=== PATIENT | female | born 2005 | race Caucasian/White ===

== ENCOUNTER 2023-11-05 21:09 | Emergency (ER) | payer BC ==
[2023-11-05 21:13] VITALS: TEMP 98.6
--- NOTE | 2023-11-05 22:04 | ED ---
General Adult HPI - General Source: patient, RN notes reviewed Mode of arrival: ambulatory Limitations: no limitations <Emily Parish - Last Filed: 11/06/23 00:02> <Shama Baker - Last Filed: 11/06/23 04:36> - General Chief complaint: Vaginal Bleeding Stated complaint: ABD Pain, pegnant Time Seen by Provider: 11/05/23 21:30 - History of Present Illness Initial comments: 18-year-old female presents emergency department chief complaint of vaginal bleeding. Patient states that she believes she is roughly 4 weeks gestation as her LMP was the beginning of September and she has had 2 at home tests with her last being 2 weeks ago. Patient states that over the past 2 days she has been experiencing lower abdominal cramping and light vaginal bleeding. She denies passage of clots. Currently patient is denying abdominal pain. This is the patient's first and she has not sought care for this . (Emily Parish) - Related Data Allergies Allergy/AdvReac Type Severity Reaction Status Date / Time No Known Allergies Allergy Verified 11/05/23 21:12 Review of Systems ROS Other: All systems not noted in ROS Statement are negative. <Emily Parish - Last Filed: 11/06/23 00:02> ROS Other: All systems not noted in ROS Statement are negative. <Shama Baker - Last Filed: 11/06/23 04:36> ROS Statement: Those systems with pertinent positive or pertinent negative responses have been documented in the HPI. Past Medical History Past Medical History: No Reported History History of Any Multi-Drug Resistant Organisms: None Reported Past Surgical History: No Surgical Hx Reported Past Psychological History: No Psychological Hx Reported Smoking Status: Never smoker Past Alcohol Use History: None Reported Past Drug Use History: None Reported <Emily Parish - Last Filed: 11/06/23 00:02> General Exam Limitations: no limitations General appearance: alert, in no apparent distress Head exam: Present: atraumatic, normocephalic, normal inspection Eye exam: Present: normal appearance, PERRL, EOMI. Absent: scleral icterus, conjunctival injection, periorbital swelling ENT exam: Present: normal exam, mucous membranes moist Neck exam: Present: normal inspection. Absent: tenderness, meningismus, lymphadenopathy Respiratory exam: Present: normal lung sounds bilaterally. Absent: respiratory distress, wheezes, rales, rhonchi, stridor Cardiovascular Exam: Present: regular rate, normal rhythm, normal heart sounds. Absent: systolic murmur, diastolic murmur, rubs, gallop, clicks GI/Abdominal exam: Present: soft, normal bowel sounds. Absent: distended, tenderness, guarding, rebound, rigid Extremities exam: Present: normal inspection, full ROM, normal capillary refill. Absent: tenderness, pedal edema, joint swelling, calf tenderness Back exam: Present: normal inspection Neurological exam: Present: alert, oriented X3, CN II-XII intact Psychiatric exam: Present: normal affect, normal mood Skin exam: Present: warm, dry, intact, normal color. Absent: rash <Emily Parish - Last Filed: 11/06/23 00:02> Course Vital Signs 11/05/23 11/05/23 11/05/23 21:10 21:12 22:12 Temperature 98.6 F Pulse Rate 130 H 98 Respiratory 20 16 16 Rate Blood Pressure 120/73 116/68 O2 Sat by Pulse 98 99 98 Oximetry 11/05/23 23:12 Temperature Pulse Rate 67 Respiratory 16 Rate Blood Pressure O2 Sat by Pulse 98 Oximetry Medical Decision Making - Lab Data Result diagrams: 11/05/23 23:38 <Emily Parish - Last Filed: 11/06/23 00:02> - Lab Data Result diagrams: 11/05/23 23:38 11/05/23 23:38 <Shama Baker - Last Filed: 11/06/23 04:36> - Medical Decision Making Was pt. sent in by a medical professional or institution (JASON Richard, GASSER MACHINE OPERATOR, urgent care, hospital, or retirement...) When possible be specific @ -[No] Did you speak to anyone other than the patient for history (EMS, parent, family, police, friend...)? What history was obtained from this source @ -[No] Did you review nursing and triage notes (agree or disagree)? Why? @ -[I reviewed and agree with nursing and triage notes] Were old charts reviewed (outside hosp., previous admission, EMS record, old EKG, old radiological studies, urgent care reports/EKG's, retirement records)? Report findings @ -[No old charts were reviewed] Differential Diagnosis (chest pain, altered mental status, abdominal pain women, abdominal pain men, vaginal bleeding, weakness, fever, dyspnea, syncope, headache, dizziness, GI bleed, back pain, seizure, CVA, palpatations, mental health, musculoskeletal)? @ -Differential Vaginal Bleeding: Spontaneous , threatened , molar , ectopic , bloody show, incompetent cervix, abruptioplacenta, placenta previa, uterine rupture, dysfunctional uterine bleeding, hemorrhage, uterine fibro ids, this is not meant to be an all-inclusive list. EKG interpreted by me (3pts min.). @ -none X-rays interpreted by me (1pt min.). @ -[None done] CT interpreted by me (1pt min.). @ -[None done] U/S interpreted by me (1pt. min.). @ -[None done] What testing was considered but not performed or refused? (CT, X-rays, U/S, labs)? Why? @ -[None] What meds were considered but not given or refused? Why? @ -[None] Did you discuss the management of the patient with other professionals (professionals i.e. , PA, GASSER MACHINE OPERATOR, lab, RT, psych nurse, community mental health social worker, professor of poultry science, teacher, equal opportunity officer, mattress spring encaser)? Give summary @ -[No] Was smoking cessation discussed for >3mins.? @ -[No] Was critical care preformed (if so, how long)? @ -[No] Were there social determinants of health that impacted care today? How? (Homelessness, low income, unemployed, alcoholism, drug addiction, transportation, low edu. Level, literacy, decrease access to med. care, group home, rehab)? @ -[No] Was there de-escalation of care discussed even if they declined (Discuss DNR or withdrawal of care, Hospice)? DNR status @ -[No] What co-morbidities impacted this encounter? (DM, HTN, Smoking, COPD, CAD, Cancer, CVA, ARF, Chemo, Hep., AIDS, mental health diagnosis, sleep apnea, morbid obesity)? @ -[None] Was patient admitted / discharged? Hospital course, mention meds given and route, prescriptions, significant lab abnormalities, going to OR and other pertinent info. @ -Discharged. 18-year-old female with vaginal bleeding. On examination patient is not expressing signs of abdominal tenderness at this time. She will be evaluated via ultrasound and laboratory studies. The patient is signed out to my colleague, Shama Baker PA-C pending US and labs in addition to disposition. Undiagnosed new problem with uncertain prognosis? @ -[No] Drug Therapy requiring intensive monitoring for toxicity (Heparin, Nitro, Insulin, Cardizem)? @ -[No] Were any procedures done? @ -[No] Diagnosis/symptom? @ -[default] Acute, or Chronic, or Acute on Chronic? @ -[default] Uncomplicated (without systemic symptoms) or Complicated (systemic symptoms)? @ -[default] Side effects of treatment? @ -[No] Exacerbation, Progression, or Severe Exacerbation? @ -[No] Poses a threat to life or bodily function? How? (Chest pain, USA, CA, pneumonia, PE, COPD, DKA, ARF, appy, cholecystitis, CVA, Diverticulitis, Homicidal, Suicidal, threat to staff... and all critical care pts) @ -[No] (Emily Parish) Was pt. sent in by a medical professional or institution (JASON Richard, GASSER MACHINE OPERATOR, urgent care, hospital, or retirement...) When possible be specific @ -No Did you speak to anyone other than the patient for history (EMS, parent, family, police, friend...)? What history was obtained from this source @ -No Did you review nursing and triage notes (agree or disagree)? Why? @ -I reviewed and agree with nursing and triage notes Were old charts reviewed (outside hosp., previous admission, EMS record, old EKG, old radiological studies, urgent care reports/EKG's, retirement records)? Report findings @ -No old charts were reviewed Differential Diagnosis (chest pain, altered mental status, abdominal pain women, abdominal pain men, vaginal bleeding, weakness, fever, dyspnea, syncope, headache, dizziness, GI bleed, back pain, seizure, CVA, palpatations, mental health, musculoskeletal)? @ -Differential Vaginal Bleeding: Spontaneous , threatened , molar , ectopic , bloody show, incompetent cervix, abruptioplacenta, placenta previa, uterine rupture, dysfunctional uterine bleeding, hemorrhage, uterine fibroids, this is not meant to be an all-inclusive list. EKG interpreted by me (3pts min.). @ -None X-rays interpreted by me (1pt min.). @ -None done CT interpreted by me (1pt min.). @ -None done U/S interpreted by me (1pt. min.). @ -Ultrasound revealed no intrauterine gestational sac is visible, endometrial stripe is thickened, consider recent spontaneous , complex cystic structure in left ovary measuring up to 2.6 cm, no free fluid is seen to indicate ruptured ectopic What testing was considered but not performed or refused? (CT, X-rays, U/S, labs)? Why? @ -None What meds were considered but not given or refused? Why? @ -RhoGAM not given due to patient is A positive Did you discuss the management of the patient with other professionals (professionals i.e. , PA, GASSER MACHINE OPERATOR, lab, RT, psych nurse, community mental health social worker, professor of poultry science, teacher, equal opportunity officer, mattress spring encaser)? Give summary @ -I spoke with radiologist on-call who reports that complex cystic structure in left ovary is likely corpus luteum however cannot completely rule out ectopic at this time, he suggests correlating with beta-hCG levels. I spoke with Dr. Villalobos regarding this case who recommends discharge with close return precautions and follow-up in 48 hours for repeat hCG and follow-up appointment in her office on Wednesday. Was smoking cessation discussed for >3mins.? @ -No Was critical care preformed (if so, how long)? @ -No Were there social determinants of health that impacted care today? How? (Homelessness, low income, unemployed, alcoholism, drug addiction, transportation, low edu. Level, literacy, decrease access to med. care, group home, rehab)? @ -No Was there de-escalation of care discussed even if they declined (Discuss DNR or withdrawal of care, Hospice)? DNR status @ -No What co-morbidities impacted this encounter? (DM, HTN, Smoking, COPD, CAD, Cancer, CVA, ARF, Chemo, Hep., AIDS, mental health diagnosis, sleep apnea, morbid obesity)? @ -None Was patient admitted / discharged? Hospital course, mention meds given and route, prescriptions, significant lab abnormalities, going to OR and other pertinent info. @ -Patient was discharged. Patient was seen and evaluated for vaginal bleeding x 2 days with abdominal cramping at approximately 4 weeks gestation. Physical examination is unremarkable. Lab work including CBC, CMP, and coags are unremarkable. Beta hCG levels are 84.4. Urine is unremarkable. Ultrasound reveals no intrauterine gestational sac, endometrial stripe is thickened, consider recent spontaneous , there is a complex cystic structure in left ovary measuring up to 2.6 cm, could represent corpus luteum, no free fluid is seen to indicate ruptured ectopic . I spoke with radiologist on- call who reports that complexes discharge her left ovary is likely corpus luteum however cannot completely rule out ectopic at this time. I spoke with Dr. Villalobos regarding this case he recommends discharge with close return precautions and follow-up in 48 hours for repeat hCG and follow-up appointment in her office on Wednesday. Discussed these findings with patient, discussed likely diagnosis of threatened . Strict return parameters discussed with patient in detail and she shows understanding and agrees with plan. RhoGAM not indicated at this time. Case was discussed with my ED attending Dr. Mejias. Patient discharged stable condition. Undiagnosed new problem with uncertain prognosis? @ -No Drug Therapy requiring intensive monitoring for toxicity (Heparin, Nitro, Insulin, Cardizem)? @ -No Were any procedures done? @ -No Diagnosis/symptom? @ -Threatened Acute, or Chronic, or Acute on Chronic? @ -Acute Uncomplicated (without systemic symptoms) or Complicated (systemic symptoms)? @ -Uncomplicated Side effects of treatment? @ -No Exacerbation, Progression, or Severe Exacerbation? @ -No Poses a threat to life or bodily function? How? (Chest pain, USA, CA, pneumonia, PE, COPD, DKA, ARF, appy, cholecystitis, CVA, Diverticulitis, Homicidal, Suicidal, threat to staff... and all critical care pts) @ -Unlikely at this time (Shama Baker) - Lab Data Lab Results 11/05/23 11/05/23 11/05/23 Range/Units 22:30 23:38 23:38 WBC 7.7 (4.0-11.0) k/uL RBC 4.00 (3.80-5.40) m/uL Hgb 12.7 (11.4-16.0) gm/dL Hct 37.2 (34.0-46.0) % MCV 92.8 (80.0-100.0) fL MCH 31.8 (25.0-35.0) pg MCHC 34.3 (31.0-37.0) g/dL RDW 12.8 (11.5-15.5) % Plt Count 244 (150-450) k/uL MPV 7.4 Neutrophils % 67 % Lymphocytes % 25 % Monocytes % 6 % Eosinophils % 0 % Basophils % 0 % Neutrophils # 5.1 (1.3-7.7) k/uL Lymphocytes # 1.9 (1.0-4.8) k/uL Monocytes # 0.5 (0-1.0) k/uL Eosinophils # 0.0 (0-0.7) k/uL Basophils # 0.0 (0-0.2) k/uL Sodium 136 L (137-145) mmol/L Potassium 3.9 (3.5-5.1) mmol/L Chloride 107 (98-107) mmol/L Carbon Dioxide 22 (22-30) mmol/L Anion Gap 7 mmol/L BUN 13 (7-17) mg/dL Creatinine 0.62 (0.52-1.04) mg/dL Est GFR (CKD-EPI)AfAm >90 (>60 ml/min/1.73 sqM) Est GFR (CKD-EPI)NonAf >90 (>60 ml/min/1.73 sqM) Glucose 84 (74-99) mg/dL Calcium 9.4 (8.4-10.2) mg/dL Total Bilirubin 0.6 (0.2-1.3) mg/dL AST 32 (14-36) U/L ALT 24 (4-34) U/L Alkaline Phosphatase 45 (38-126) U/L Total Protein 6.9 (6.3-8.2) g/dL Albumin 4.4 (3.5-5.0) g/dL HCG, Quant 84.4 mIU/mL Urine Color Light Yellow Urine Appearance Cloudy H (Clear) Urine pH 7.5 (5.0-8.0) Ur Specific [place] 1.022 (1.001-1.035) Urine Protein Negative (Negative) Urine Glucose (UA) Negative (Negative) Urine Ketones Negative (Negative) Urine Blood Negative (Negative) Urine Nitrite Negative (Negative) Urine Bilirubin Negative (Negative) Urine Urobilinogen <2.0 (<2.0) mg/dL Ur Leukocyte Esterase Negative (Negative) Urine WBC <1 (0-5) /hpf Ur Squamous Epith Cells 13 H (0-4) /hpf Urine Bacteria Rare H (None) /hpf Urine Mucus Rare H (None) /hpf Blood Type Blood Type Recheck Bld Type Recheck Status 11/06/23 Range/Units 01:15 WBC (4.0-11.0) k/uL RBC (3.80-5.40) m/uL Hgb (11.4-16.0) gm/dL Hct (34.0-46.0) % MCV (80.0-100.0) fL MCH (25.0-35.0) pg MCHC (31.0-37.0) g/dL RDW (11.5-15.5) % Plt Count (150-450) k/uL MPV Neutrophils % % Lymphocytes % % Monocytes % % Eosinophils % % Basophils % % Neutrophils # (1.3-7.7) k/uL Lymphocytes # (1.0-4.8) k/uL Monocytes # (0-1.0) k/uL Eosinophils # (0-0.7) k/uL Basophils # (0-0.2) k/uL Sodium (137-145) mmol/L Potassium (3.5-5.1) mmol/L Chloride (98-107) mmol/L Carbon Dioxide (22-30) mmol/L Anion Gap mmol/L BUN (7-17) mg/dL Creatinine (0.52-1.04) mg/dL Est GFR (CKD-EPI)AfAm (>60 ml/min/1.73 sqM) Est GFR (CKD-EPI)NonAf (>60 ml/min/1.73 sqM) Glucose (74-99) mg/dL Calcium (8.4-10.2) mg/dL Total Bilirubin (0.2-1.3) mg/dL AST (14-36) U/L ALT (4-34) U/L Alkaline Phosphatase (38-126) U/L Total Protein (6.3-8.2) g/dL Albumin (3.5-5.0) g/dL HCG, Quant mIU/mL Urine Color Urine Appearance (Clear) Urine pH (5.0-8.0) Ur Specific [place] (1.001-1.035) Urine Protein (Negative) Urine Glucose (UA) (Negative) Urine Ketones (Negative) Urine Blood (Negative) Urine Nitrite (Negative) Urine Bilirubin (Negative) Urine Urobilinogen (<2.0) mg/dL Ur Leukocyte Esterase (Negative) Urine WBC (0-5) /hpf Ur Squamous Epith Cells (0-4) /hpf Urine Bacteria (None) /hpf Urine Mucus (None) /hpf Blood Type A Positive Blood Type Recheck No Previous Record Bld Type Recheck Status [facility] ONLY Disposition <Emily Parish - Last Filed: 11/06/23 00:02> Is patient prescribed a controlled substance at d/c from ED?: No Time of Disposition: 04:27 <Shama Baker - Last Filed: 11/06/23 04:36> Clinical Impression: Threatened miscarriage Disposition: HOME SELF-CARE Condition: Stable Instructions (If sedation given, give patient instructions): Threatened Miscarriage (ED) Additional Instructions: Please follow-up in 48 hours as discussed for repeat beta hCG levels. Follow-up with Dr. Villalobos on Wednesday. Please return to the Emergency Department if symptoms worsen or any other concerns. Referrals: None,Stated [Primary Care Provider] - 1-2 days Rosa Villalobos DO [Doctor of Osteopathic Medicine] - 1-2 days
[2023-11-05 23:00] VITALS: RESP 16
[2023-11-05 23:07] LABS: Appearance,Urine Cloudy (Clear); Bacteria,Urine Rare /hpf; Bilirubin,Urine Negative (Negative); Blood,Urine Negative (Negative); Color,Urine Light Yellow; Glucose,Urine (UA) Negative (Negative); Ketones,Urine Negative (Negative); Leukocyte Esterase,Urine Negative (Negative); Mucus,Urine Rare /hpf; Nitrite,Urine Negative (Negative); PH, Urine 7.5 (5.0-8.0); Protein,Urine Negative (Negative); Specific Gravity,Urine 1.022 (1.001-1.035); Squamous Epithelial Cell,Urine 13 /hpf (0-4); Urobilinogen,Urine <2.0 mg/dL (<2.0); WBC,Urine <1 /hpf (0-5)
[2023-11-06] LABS: Basophils % (A) 0 %; Eosinophils % (A) 0 %; HCT 37.2 % (34.0-46.0); HGB 12.7 gm/dL (11.4-16.0); Lymphocytes # (A) 1.9 k/uL (1.0-4.8); Lymphocytes % (A) 25 %; MCH 31.8 pg (25.0-35.0); MCHC 34.3 g/dL (31.0-37.0); MCV 92.8 fL (80.0-100.0); Mean Platelet Volume 7.4; Monocytes # (A) 0.5 k/uL (0-1.0); Monocytes % (A) 6 %; Neutrophils # (A) 5.1 k/uL (1.3-7.7); Neutrophils % (A) 67 %; Platelet Count 244 k/uL (150-450); RDW 12.8 % (11.5-15.5); WBC 7.7 k/uL (4.0-11.0)
[2023-11-06 00:12] LABS: ALT 24 U/L (4-34); AST 32 U/L (14-36); African American GFR (CKD) >90 (>60 ml/min/1.73 sqM); Albumin 4.4 g/dL (3.5-5.0); Alkaline Phosphatase 45 U/L (38-126); Anion Gap 7 mmol/L; Blood Urea Nitrogen 13 mg/dL (7-17); Calcium 9.4 mg/dL (8.4-10.2); Carbon Dioxide 22 mmol/L (22-30); Chloride 107 mmol/L (98-107); Glucose 84 mg/dL (74-99); Non-African American GFR(CKD) >90 (>60 ml/min/1.73 sqM); Potassium 3.9 mmol/L (3.5-5.1); Sodium 136 mmol/L (137-145); Total Bilirubin 0.6 mg/dL (0.2-1.3); Total Protein 6.9 g/dL (6.3-8.2)
[2023-11-06 00:29] LABS: HCG,Quantitative Serum 84.4 mIU/mL
--- NOTE | 2023-11-06 01:05 | US ---
EXAM: US , Transvaginal CLINICAL HISTORY: US Reason: vaginal bleeding, cramping TECHNIQUE: Real-time transvaginal obstetrical ultrasound of the maternal pelvis and a first trimester with image documentation. Transvaginal imaging was used for better evaluation of the fetus and adnexa. COMPARISON: No relevant prior studies available. FINDINGS: Gestation: None visible. Uterus/cervix: The uterus measures 9.7 x 4.8 x 6.9 cm, 168 mL and is retroverted. The endometrial stripe is thickened measuring 1.9 cm. No myometrial mass. Ovaries: The left ovary measures 3.9 x 2.2 x 3.1 cm, 14.2 mL with a complex cyst within it measuring 2.4 x 1.7 x 2.2 cm. The right ovary measures 2.6 x 3.1 x 2.5 cm, 10.6 mL. Free fluid: No free fluid is seen in the cul-de-sac. IMPRESSION: No intrauterine gestational sac is visible. The endometrial stripe is thickened. Correlate with clinical scenario. Consider recent spontaneous . There is a complex cystic structure in the left ovary measuring up to 2.6 cm which could represent a corpus luteum cyst. No free fluid is seen to indicate ruptured ectopic . Recommend correlation to serial quantitative beta hCG to rule out ectopic . <MYCVCSECTION> Communications: 11/06/23 01:26 Call Doctor Regarding Above results, called JASON Sesay on 11/05 01:25 (-04:00)
[2023-11-06 06:04] VITALS: BP 128/68; PULSE 88
== END 2023-11-06 04:34 | disposition home or self-care (01) ==
LOC: EC 21:09
DX: O20.0 Threatened abortion (principal); Z3A.01 Less than 8 weeks gestation of pregnancy
CPT/HCPCS: 36415; 76801; 76817; 80053; 81001; 84702; 85025; 86900; 86901; 99284

== ENCOUNTER → 2023-11-08 | Outpatient (CLI) | payer BC | END | disposition home or self-care (01) | LOC: LABWHC1 10:19 | PROVIDERS: ATTEND Physician Assistant | DX: O20.0 Threatened abortion (principal); Z3A.00 Weeks of gestation of pregnancy not specified | CPT/HCPCS: 36415; 84702 ==

== ENCOUNTER 2024-04-27 15:49 | Outpatient (CLI) | payer OTHER ==
[2024-04-27 16:47] VITALS: BP 133/73; PULSE 142; RESP 18; TEMP 98.1
--- NOTE | 2024-05-19 15:49 | P.MSEPDOC ---
Presenting Problems - Arrival Data Date of Arrival on Unit: 04/27/24 Time of Arrival on Unit: 15:49 Mode of Transport: Ambulatory - Complaint OB-Reason for Admission/Chief Complaint: Dizziness Comment: pt c/o SOB Medical History - Information : 1 Para: 0 Term: 0 : 0 Abortions: Spontaneous or Elective: 0 Number of Living Children: 0 - Gestational Age Gestational Age by MIR (wks/days): 29 Weeks and 0 Days Review of Systems - Review of Systems Constitutional: No problems Breast: No problems ENT: No problems Cardiovascular: No problems Respiratory: No problems Gastrointestinal: No problems Genitourinary: No problems Musculoskeletal: No problems Neurological: Dizziness Skin: No problems Comment: pt c/o SOB, lungs clear SPO2 WNL, no distress noted Vital Signs - Temperature Temperature: 98.1 F Temperature Source: Temporal Artery Scan - Pulse Pulse Oximetery Pulse Rate: 142 Pulse Assessment Method: Pulse Oximetry - Respirations Respiratory Rate: 18 Oxygen Delivery Method: Room Air O2 Sat by Pulse Oximetry: 98 - Blood Pressure Right Arm Blood Pressure: 133/73 Blood Pressure Mean: 93 Blood Pressure Source: Automatic Cuff Medical Screen Scoring - Assessment - Baby A Baseline FHR: 140 Heart Rate - NICHD Category: Category I (Normal) NST: Reactive Physician Notification - Physician Notified Physician Notified Date: 04/27/24 Physician Notified Time: 16:25 New Order Received: Yes (d/c) Maternal Triage Index - Non-Urgent/Priority 4 Non-Urgent Priority 4: Yes Criteria Met for Priority 4: common discomforts of . Disposition - Disposition OB Disposition: Discharge to home Discharge Date: 04/27/24 Discharge Time: 16:31 I agree with the RN Medical Screening Exam: Yes Physician's MSE Comment: I have neither seen nor examined the patient Case reviewed; plan agreed upon as documented in EMR&OBIX.: Yes Diagnosis: RELATED CONDITIONS, UNSPECIFIED, THIRD TRIMESTER
== END 2024-04-27 16:31 | disposition home or self-care (01) ==
LOC: FBPOP 15:49
PROVIDERS: ATTEND Obstetrics & Gynecology
DX: O26.93 Pregnancy related conditions, unspecified, third trimester (principal); Z3A.29 29 weeks gestation of pregnancy
CPT/HCPCS: 59025; G0463; 99213

== ENCOUNTER 2024-07-13 13:44 | Inpatient (IN) | payer OTHER ==
[2024-07-20] MEDS ORDERED: METHYLERGONOVINE 0.2 MG/ML 1 ML AMP IM PRN (06:23)
[2024-07-20] MEDS ORDERED: LIDOCAINE 0.5% (PF) 5 MG/ML (50 ML SDV) SQ PRN (06:23)
[2024-07-20] MEDS ORDERED: TERBUTALINE 1 MG/ML VIAL SQ PRN (06:23)
[2024-07-20] MEDS ORDERED: miSOPROStoL 200 MCG TAB PO PRN (06:23)
[2024-07-20] MEDS ORDERED: OXYTOCIN 10 UNIT/ML 1 ML VIAL IM PRN (06:23)
[2024-07-20] MEDS ORDERED: TRANEXAMIC 1,000 MG/100ML-NACL 1,000 MG in EMPTY BAG 1 BAG IV PRN (06:23)
[2024-07-20] MEDS ORDERED: miSOPROStoL 200 MCG TAB RECTAL PRN (06:23)
[2024-07-20] MEDS ORDERED: CARBOPROST TROMETHAMINE 250 MCG/ML 1 ML AMP IM PRN (06:23)
[2024-07-20 06:30] VITALS: BP 122/73; PULSE 120; RESP 18; TEMP 97.3
[2024-07-20] MEDS: LACTATED RINGERS 1,000 ML IV SCH (06:36)
[2024-07-20] MEDS: OXYTOCIN 30 UNITS/500 ML NS 30 UNIT in SALINE 1 500ML.BAG IV SCH (06:52)
[2024-07-20 06:57] LABS: Basophils % (A) 0 %; Eosinophils % (A) 0 %; HCT 32.7 % (34.0-46.0); HGB 10.7 gm/dL (11.4-16.0); Hypochromasia Slight; Lymphocytes # (A) 2.3 k/uL (1.0-4.8); Lymphocytes % (A) 25 %; MCH 27.7 pg (25.0-35.0); MCHC 32.8 g/dL (31.0-37.0); MCV 84.3 fL (80.0-100.0); Monocytes # (A) 0.7 k/uL (0-1.0); Monocytes % (A) 8 %; Neutrophils # (A) 5.8 k/uL (1.3-7.7); Neutrophils % (A) 64 %; Platelet Count 210 k/uL (150-450); RBC 3.87 m/uL (3.80-5.40); RDW 13.2 % (11.5-15.5); WBC 9.1 k/uL (3.8-10.6)
--- NOTE | 2024-07-20 08:23 | P.HPOB ---
History of Present Illness H&P Date: 07/20/24 Chief Complaint: Induction of labor, post-dates Ms. Kuo is a 19 year old at 41 weeks gestation with EDC of 07/13/2024 by LMP consistent with 9 week US who presents for induction of labor for post-dates gestation. The has been essentially uncomplicated. At 32 weeks the fetus was estimated to weigh in the 48%ile for gestational age. work-up: blood type A positive, antibody screen negative, rubella immune, VDRL non-reactive, HIV negative, HBsAg negative, HCV Ab non-reactive, gonorrhea negative, chlamydia negative, 1 hour GTT wnl, GBS negative. Past Medical History Past Medical History: No Reported History History of Any Multi-Drug Resistant Organisms: None Reported Past Surgical History: No Surgical Hx Reported Past Anesthesia/Blood Transfusion Reactions: No Reported Reaction Past Psychological History: No Psychological Hx Reported Smoking Status: Never smoker Past Alcohol Use History: None Reported Past Drug Use History: None Reported Medications and Allergies Allergies Allergy/AdvReac Type Severity Reaction Status Date / Time No Known Allergies Allergy Verified 04/27/24 16:06 Exam Vital Signs Temp Pulse Resp BP 07/20/24 06:22 97.3 F L 120 H 18 122/73 Intake and Output 07/19/24 07/20/24 07/20/24 22:59 06:59 14:59 Other: Weight 72.575 kg Focused physical exam is performed. This is a healthy-appearing in no apparent distress. Breathing is non-labored. Abdomen is gravid and non-tender. Cervical exam is deferred at this time as AROM is declined by the patient for the time being. Extremities non-tender and non-edematous. heart tones are Category I and tocometer is graphing contractions every 2-4 minutes. Results Result Diagrams: 07/20/24 06:23 Abnormal Lab Results - Last 24 Hours (Table) 07/20/24 Range/Units 06:23 Hgb 10.7 L (11.4-16.0) gm/dL Hct 32.7 L (34.0-46.0) % Assessment and Plan Assessment: 19 year old at 41 weeks gestation presenting for induction of labor for post-dates gestation Plan: Admit, clear liquid diet, pitocin titrated per protocol, continuous EFM and to cometer.
--- NOTE | 2024-07-20 16:48 | P.DS ---
Providers Date of admission: 07/20/24 06:10 Expected date of discharge: 07/20/24 Attending physician: Minerva Pacheco MD Primary care physician: Stated None Hospital Course: Ms. Kuo is a 19 year old at 41 weeks gestation presenting today for induction of labor for post-dates. Pitocin was titrated per protocol. The patient made slow change from 1/50/-3 to 2/70/-2 over approximately 8 hours. She did decline amniotomy during this time. After not making much change throughout the day, the patient decided she would like to go home and try again another day is she does not go into labor spontaneously before then. She is advised that we must deliver the baby prior to 42 weeks. She is scheduled for Wednesday 07/26 at 6AM. The patient understands. All questions answered. Patient Condition at Discharge: Good Plan - Discharge Summary Follow up Appointment(s)/Referral(s): Minerva Pacheco MD [STAFF PHYSICIAN] - 09/04/24 1:00 am
== END 2024-07-20 17:00 | disposition home or self-care (01) | DRG 566 ==
LOC: 4FBP 07-20 06:10
PROVIDERS: ADMIT Obstetrics & Gynecology; ATTEND Obstetrics & Gynecology
PROC: 3E033VJ Introduction of Other Hormone into Peripheral Vein, Percutaneous Approach (ICD-10-PCS; principal; 2024-07-20)
PROC: 3E0DXGC Introduction of Other Therapeutic Substance into Mouth and Pharynx, External Approach (ICD-10-PCS; principal; 2024-07-20)
DX: O48.0 Post-term pregnancy (principal); Z3A.41 41 weeks gestation of pregnancy; O61.0 Failed medical induction of labor
CPT/HCPCS: 85025; 86850; 86900; 86901

== ENCOUNTER 2024-07-21 07:38 | Inpatient (IN) | payer OTHER ==
[2024-07-21] MEDS ORDERED: CARBOPROST TROMETHAMINE 250 MCG/ML 1 ML AMP IM PRN (08:27)
[2024-07-21] MEDS ORDERED: METHYLERGONOVINE 0.2 MG/ML 1 ML AMP IM PRN (08:27)
[2024-07-21] MEDS ORDERED: TERBUTALINE 1 MG/ML VIAL SQ PRN (08:27)
[2024-07-21] MEDS ORDERED: OXYTOCIN 10 UNIT/ML 1 ML VIAL IM PRN (08:27)
[2024-07-21] MEDS ORDERED: miSOPROStoL 200 MCG TAB RECTAL PRN (08:27)
[2024-07-21] MEDS ORDERED: TRANEXAMIC 1,000 MG/100ML-NACL 1,000 MG in EMPTY BAG 1 BAG IV PRN (08:27)
[2024-07-21] MEDS ORDERED: miSOPROStoL 200 MCG TAB PO PRN (08:27)
[2024-07-21] MEDS ORDERED: OXYTOCIN 30 UNITS/500 ML NS 30 UNIT in SALINE 1 500ML.BAG IV SCH (08:30)
[2024-07-21 08:43] LABS: Basophils % (A) 0 %; Eosinophils # (A) 0.1 k/uL (0-0.7); Eosinophils % (A) 1 %; HCT 32.3 % (34.0-46.0); HGB 10.3 gm/dL (11.4-16.0); Lymphocytes # (A) 1.3 k/uL (1.0-4.8); Lymphocytes % (A) 10 %; MCH 27.3 pg (25.0-35.0); MCHC 31.7 g/dL (31.0-37.0); MCV 85.9 fL (80.0-100.0); Mean Platelet Volume 9.6; Monocytes # (A) 0.6 k/uL (0-1.0); Monocytes % (A) 5 %; Neutrophils # (A) 10.7 k/uL (1.3-7.7); Neutrophils % (A) 83 %; Platelet Count 211 k/uL (150-450); RBC 3.77 m/uL (3.80-5.40); RDW 13.4 % (11.5-15.5); WBC 12.9 k/uL (3.8-10.6)
[2024-07-21] MEDS: NALBUPHINE 10 MG/ML (10 ML MDV) IV PRN (09:23)
--- NOTE | 2024-07-21 09:23 | P.HPOB ---
History of Present Illness H&P Date: 07/21/24 Chief Complaint: Contractions Ms. Kuo is a 19 year old at 41 weeks and 1 day gestation with EDC of 07/13/2024 by LMP consistent with 9 week US who in labor. She was seen yesterday for pitocin induction of labor, but ultimately decided to go home after declining AROM and only making one centimeter of change during 8 hours. She cam back after laboring at home overnight and is now 5 centimeters, hurting much more than yesterday. She has had limited care with no visits from 36 weeks through 41 weeks. At 32 weeks the fetus was estimated to weigh in the 48%ile for gestational age. work-up: blood type A positive, antibody screen negative, rubella imm une, VDRL non-reactive, HIV negative, HBsAg negative, HCV Ab non-reactive, gonorrhea negative, chlamydia negative, 1 hour GTT wnl, GBS negative. Past Medical History Past Medical History: No Reported History History of Any Multi-Drug Resistant Organisms: None Reported Past Surgical History: No Surgical Hx Reported Past Anesthesia/Blood Transfusion Reactions: No Reported Reaction Smoking Status: Never smoker Medications and Allergies Home Medications Medication Instructions Recorded Confirmed Type No Known Home Medications 07/21/24 07/21/24 History Allergies Allergy/AdvReac Type Severity Reaction Status Date / Time No Known Allergies Allergy Verified 07/21/24 07:51 Exam Intake and Output 07/20/24 07/21/24 07/21/24 22:59 06:59 14:59 Other: Weight 72.575 kg Focused physical exam is performed. This is a healthy-appearing in no apparent distress. Breathing is non-labored. Abdomen is gravid and non-tender. Cervical exam is 5/100/-2. AROM is undertaken with clear fluid noted. Extremities non-tender and non-edematous. heart tones are Category I and tocometer is graphing contractions every 2-4 minutes. Results Result Diagrams: 07/21/24 08:30 Abnormal Lab Results - Last 24 Hours (Table) 07/21/24 Range/Units 08:30 WBC 12.9 H (3.8-10.6) k/uL RBC 3.77 L (3.80-5.40) m/uL Hgb 10.3 L (11.4-16.0) gm/dL Hct 32.3 L (34.0-46.0) % Neutrophils # 10.7 H (1.3-7.7) k/uL Assessment and Plan Assessment: 19 year old at 41 weeks and 1 day gestation in labor Plan: Admit, clear liquid diet, patient s/p a bolus of fluid and now requesting hep lock. Nubain 5mg q5 hours, no more doses past 8 centimeters. Continuous EFM and tocometer.
[2024-07-21 09:54] VITALS: RESP 16
[2024-07-21] MEDS: LACTATED RINGERS 1,000 ML IV SCH (11:28)
[2024-07-21] MEDS: LIDOCAINE 0.5% (PF) 5 MG/ML (50 ML SDV) SQ PRN (13:00)
--- NOTE | 2024-07-21 13:27 | P.PROBDLV ---
Vaginal Delivery Note - . Vaginal Delivery Note: DATE OF SERVICE: 07/21/2024 PROCEDURE: Normal Vaginal Delivery ATTENDING: Dr. Minerva Pacheco MD ESTIMATED BLOOD LOSS: 200 mL FINDINGS: VFI, Apgars 8/8. Weight 7 pounds and 15 ounces PROCEDURE: Ms. Kuo is a 19 year old at 41 weeks and 1 day presenting to [facility] and delivery in labor. For further details on the , please review the admitting H&P. The patient was completely dilated at 1200. She pushed effectively with Category I to II FHTs. A viable female was delivered at 1246. The was placed on the maternal abdomen and bulb suctioned. The infant was noted to be spontaneously crying. Cord was clamped and cut after a 6 minute delay per patient request. The infant was handed off to the pediatric team. Placenta was delivered whole with gentle cord traction. Oxytocin was not started to facilitate uterine tone, per patient request. Uterine fundus was found to be firm and below the umbilicus upon fundal massage. Thorough examination of the cervix, vagina, periurethral area, and perineum revealed a second degree perineal laceration extending up into bilateral labia majora. This area was infiltrated with lidocaine and repaired with 2-0 Vicryl in the usual fashion. The patient is stable and allowed to begin the bonding process.
[2024-07-21] MEDS ORDERED: diphenhydrAMINE 25 MG CAP PO PRN (13:28)
[2024-07-21] MEDS ORDERED: diphenhydrAMINE 50 MG/ML 1 ML VIAL IVP PRN ×2 (13:28)
[2024-07-21] MEDS ORDERED: HYDROCORTISONE 2.5% RECTAL CREAM 30 GM TUBE RECTAL PRN (13:28)
[2024-07-21] MEDS ORDERED: ZOLPIDEM 5 MG TAB PO PRN (13:28)
[2024-07-21] MEDS ORDERED: SIMETHICONE 80 MG CHEWABLE PO PRN (13:28)
[2024-07-21] MEDS ORDERED: LANOLIN CREAM 1 GM TUBE TOPICAL PRN (13:28)
[2024-07-21] MEDS ORDERED: diphenhydrAMINE 50 MG CAP PO PRN (13:28)
[2024-07-21] MEDS: BENZOCAINE/MENTHOL SPRAY 1 GM/SPRAY AEROSOL TOPICAL PRN (13:37)
[2024-07-21] MEDS: IBUPROFEN 800 MG TAB PO SCH (16:32)
[2024-07-21] MEDS: ACETAMINOPHEN TAB 500 MG TAB PO SCH (16:33)
[2024-07-21] MEDS: SENNOSIDES-DOCUSATE SODIUM 1 EACH TAB PO SCH (19:46)
[2024-07-22 00:53] VITALS: TEMP 98
[2024-07-22 05:02] LABS: Basophils % (A) 0 %; Eosinophils % (A) 0 %; HCT 25.8 % (34.0-46.0); Hypochromasia Slight; Lymphocytes % (A) 18 %; MCH 27.7 pg (25.0-35.0); MCHC 31.8 g/dL (31.0-37.0); Mean Platelet Volume 10.1; Monocytes # (A) 0.9 k/uL (0-1.0); Monocytes % (A) 8 %; Neutrophils # (A) 8.2 k/uL (1.3-7.7); Neutrophils % (A) 73 %; Platelet Count 197 k/uL (150-450); RBC 2.96 m/uL (3.80-5.40); RDW 13.6 % (11.5-15.5); WBC 11.2 k/uL (3.8-10.6)
[2024-07-22 05:03] LABS: HGB 8.2 gm/dL (11.4-16.0)
[2024-07-22 09:20] VITALS: BP 113/69; PULSE 100
--- NOTE | 2024-07-22 10:33 | P.DS ---
Providers Date of admission: 07/21/24 08:09 Expected date of discharge: 07/22/24 Attending physician: Minerva Pacheco MD Primary care physician: Stated None - Discharge Diagnosis(es) (1) Status post normal vaginal delivery Current Visit: Yes Status: Acute Hospital Course: Patient presented active labor. She underwent a normal vaginal delivery. Postp artum course was uneventful. She denies nausea, vomiting, chest pain, shortness of breath or calf pain. Patient will be discharged home day #1 in stable condition to follow-up with Dr. Pacheco in 6 weeks. Plan - Discharge Summary New Discharge Prescriptions: No Action No Known Home Medications Discharge Medication List No Known Home Medications 07/21/24 [History] Follow up Appointment(s)/Referral(s): Minerva Pacheco MD [STAFF PHYSICIAN] - 09/04/24 1:00 pm Discharge Disposition: HOME SELF-CARE
== END 2024-07-22 14:16 | disposition home or self-care (01) | DRG 560 ==
LOC: FBPOP 07:38 → 4FBP 08:09
PROVIDERS: ADMIT Obstetrics & Gynecology; ATTEND Obstetrics & Gynecology
PROC: 3E033VJ Introduction of Other Hormone into Peripheral Vein, Percutaneous Approach (ICD-10-PCS; principal; 2024-07-21)
PROC: 10E0XZZ Delivery of Products of Conception, External Approach (ICD-10-PCS; principal; 2024-07-21)
PROC: 0KQM0ZZ Repair Perineum Muscle, Open Approach (ICD-10-PCS; principal; 2024-07-21)
DX: O48.0 Post-term pregnancy (principal); O70.1 Second degree perineal laceration during delivery; Z37.0 Single live birth; Z3A.41 41 weeks gestation of pregnancy
CPT/HCPCS: 59025; 85025; 99213